=== PATIENT | female | born 1970 | race Caucasian/White ===

== ENCOUNTER 2018-03-17 19:30 | Emergency (ER) | payer OTHER ==
--- NOTE | 2018-03-17 19:32 | PDOC ---
History of Present Illness - General History Source: Patient Exam Limitations: No Limitations - General Chief Complaint: Chest Pain Stated Complaint: CHEST PRESSURE Time Seen by Provider: 03/17/18 19:31 - History of Present Illness Initial Comments: Patient is a 47 year old female with a PMHx of acid reflux, who presents with chest pressure. Patient is a nurse at [employer]. She states that she earlier today at work she began feeling pressure in her chest and abdomen. She took her blood pressure thinking it was low but measured it and it was actually high. She also states that she felt lethargic and had trouble keeping her eyes open. Patient states that she hasnt seen her primary care doctor in a couple of years but last time she was there her blood pressure was normal. She denies any fever, chills, sore throat, cough, congestion, or recent illness. ROS General: No fevers or chills, no weakness, no weight loss HEENT: No change in vision. No sore throat, No ear pain Cardiovascular: +chest pressure. No chest pain or shortness of breath Respiratory:No cough, or wheezing. Gastrointestinal: No nausea, vomiting, diarrhea or constipation, No rectal bleeding Genitourinary: No dysuria, hematuria, or frequency Musculoskeletal: No joint or muscle pain or swelling Neurologic: No headache, vertigo, dizziness or loss of consciousness Psychiatric: No depression Skin: No rashes or easy bruising Endocrine: +lethargy. No increased thirst or abnormal weight change Allergic: No skin or latex allergy All other systems reviewed and normal PE General: Well-nourished well-developed individual, no acute distress HEENT: Throat: Normal, tonsils normal, no erythema or exudate Neck: Supple, no meningeal signs, no lymphadenopathy Eyes:Pupils equal reactive and round, extraocular motion intact Chest: Nontender to palpation Cardiac: S1-S2 normal, regular rate and rhythm, no murmurs rubs or gallops Respiratory: Lungs clear to auscultation bilateral Abdomen: Soft, nondistended, normal bowel sounds, mild tenderness to palpation of epigastric region. Extremities: Warm, dry, no cyanosis, clubbing, or edema Skin: No rashes Neuro: Alert and oriented x3, nonfocal exam, grossly intact, normal gait Psych: Normal mood and affect 03/17/18 20:01 (Estefania Steele) 03/17/18 21:24 A portion of this note was documented by scribe services under my direction. I have reviewed the details of the note, within reason, and agree with the documentation. The case summary and management plan written by me. Assessment plan: This is a 47-year-old female who has a history of hypertension not on any medications. Patient is uncertain at what point she developed hypertension as it has been a couple years and she saw her primary care doctor. Patient had a cardiogram that was normal and a workup that was negative for any acute process including a negative troponin. Patient had a TSH done that was not available at the time of her discharge however she well follow-up with her doctor and make sure she gets the result of the TSH. Patient discharged home with her . (Peewee Joe I) Past History - Past Medical History Allergies/Adverse Reactions: Allergies Allergy/AdvReac Type Severity Reaction Status Date / Time No Known Allergies Allergy Unverified 03/17/18 19:31 Home Medications: Ambulatory Orders NK [No Known Home Medication] 03/17/18 Review of Systems - Review of Systems Comments:: See HPI (Estefania Steele) *Physical Exam - Vital Signs Last Vital Signs Temp Pulse Resp BP Pulse Ox 98 F 82 14 166/90 100 03/17/18 19:32 03/17/18 19:32 03/17/18 19:32 03/17/18 19:32 03/17/18 19:32 - Physical Exam Comments: see HPI (Estefania Steele) Heart Score/ECG Review - ECG Impressions Comment:: EKG Interpretation done on 17-Mar-2018 19:45:01 Vent rate: 83 bpm Normal sinus rhythm Normal ECG (Estefania Steele) ED Treatment Course - LABORATORY CBC & Chemistry Diagram: 03/17/18 19:57 03/17/18 19:57 - ADDITIONAL ORDERS Additional order review: Laboratory Results 03/17/18 03/17/18 03/17/18 20:00 20:00 19:57 Sodium Potassium Chloride Carbon Dioxide Anion Gap BUN Creatinine Creat Clearance w eGFR Random Glucose Calcium Total Bilirubin AST ALT Alkaline Phosphatase Creatine Kinase 61 Troponin I < 0.03 Total Protein Albumin Urine Color Yellow Urine Appearance Clear Urine pH 5.5 Ur Specific [place] 1.015 Urine Protein Negative Urine Glucose (UA) Negative Urine Ketones Negative Urine Blood Negative Urine Nitrite Negative Urine Bilirubin Negative Urine Urobilinogen 0.2 Ur Leukocyte Esterase Negative 03/17/18 19:57 Sodium 135 L Potassium 4.1 Chloride 105 Carbon Dioxide 23 Anion Gap 7 L BUN 16 Creatinine 0.9 Creat Clearance w eGFR > 60 Random Glucose 101 Calcium 8.9 Total Bilirubin 0.7 AST 14 ALT 13 Alkaline Phosphatase 58 Creatine Kinase Troponin I Total Protein 6.6 Albumin 3.8 Urine Color Urine Appearance Urine pH Ur Specific [place] Urine Protein Urine Glucose (UA) Urine Ketones Urine Blood Urine Nitrite Urine Bilirubin Urine Urobilinogen Ur Leukocyte Esterase 03/17/18 19:57 RBC 5.07 MCV 75.5 L MCHC 33.2 RDW 15.5 MPV 9.6 Neutrophils % 73.4 Lymphocytes % 19.7 Monocytes % 5.0 Eosinophils % 1.5 Basophils % 0.4 - Medications Given in the ED: ED Medications Discontinued Medications Generic Name Dose Route Start Last Admin Trade Name Freq PRN Reason Stop Dose Admin Al Hydroxide/Mg Hydroxide 30 ml 03/17/18 19:52 03/17/18 20:15 Mylanta Oral Suspension - PO 03/17/18 19:53 30 ml ONCE ONE Administration *DC/Admit/Observation/Transfer - Discharge Dispostion Decision to Admit order: No Diagnosis at time of Disposition: Pressure in chest - Discharge Dispostion Disposition: HOME Condition at time of disposition: Good - Patient Instructions Additional Instructions: You had a workup in the emergency department because you're having some chest pressure. Your workup was negative for any cardiac causes including you had a normal cardiogram and your cardiac enzymes were negative. However your blood pressure was mildly elevated and is important that you follow -up with your doctor and may need to be started on some blood pressure sure medication I gave you copies of your blood work and your cardiogram take them when you go see her doctor Your lipase and TSH were not available at the time I gave you copies so you can call tomorrow for the results of them. The phone number is [phone] Return to the emergency department immediately with ANY new, persistent or worsening symptoms. Continue any medications as previously prescribed by your physician. You should follow up with your primary doctor as soon as possible regarding today's emergency department visit. . Please make sure your doctor reviews the results of your emergency evaluation. Thank you for coming to the Emergency Department today for your care. It was a pleasure to see you today. Please note that your evaluation is INCOMPLETE until you follow-up with your doctor. . - Attestations Scribe Attestion: 03/17/18 19:57 Documentation prepared by Estefania Steele, acting as medical billing service for Peewee Joe MD. (Estefania Steele)
[2018-03-17 19:39] VITALS: PULSE 82; TEMP 98; BMI 29.6
[2018-03-17] MEDS ORDERED: MAG HYDROX/AL HYDROX/SIMETH 30 ML UNIT-DOSE CUP PO ONE (19:52)
[2018-03-17 20:20] LABS: BASO % 0.4 % (0-2.0); EOS % 1.5 % (0-4.5); HEMATOCRIT 38.3 % (32.4-45.2); HEMOGLOBIN 12.7 GM/dl (10.7-15.3); LYMPH % 19.7 % (8-40); MCH 25.1 pg (25.7-33.7); MCHC 33.2 g/dl (32.0-36.0); MEAN CELL VOLUME 75.5 fl (80-96); MEAN PLT VOLUME 9.6 fl (7.5-11.1); NEUT % 73.4 % (42.8-82.8); PLATELET COUNT 218 K/MM3 (134-434); RBC 5.07 M/mm3 (3.60-5.2); RDW 15.5 % (11.6-15.6); WHITE BLOOD COUNT 9.3 K/mm3 (4.0-10.8)
[2018-03-17 20:29] LABS: ALBUMIN 3.8 g/dl (3.5-5.0); ALK PHOS 58 U/L (32-92); ANION GAP 7 MMOL/L (8-16); BILIRUBIN,TOTAL 0.7 mg/dl (0.2-1.0); BLOOD UREA NITROGEN 16 mg/dl (7-18); CALCIUM 8.9 mg/dl (8.4-10.2); CHLORIDE 105 mmol/L (98-107); CO2 23 mmol/L (22-28); CREATININE 0.9 mg/dl (0.6-1.3); GLUCOSE,RANDOM 101 mg/dl (74-106); POTASSIUM 4.1 mmol/L (3.5-5.1); SGOT/AST 14 U/L (10-42); SGPT/ALT 13 U/L (10-40); SODIUM 135 mmol/L (136-145); TOT PROT 6.6 g/dl (6.4-8.3)
[2018-03-17] MEDS ORDERED: MAG HYDROX/AL HYDROX/SIMETH 30 ML UNIT-DOSE CUP ONE (20:39)
[2018-03-17 20:42] LABS: PH,URINE 5.5 (4.5-8); URINE APPEARANCE Clear; URINE BILIRUBIN Negative (NEGATIVE); URINE COLOR Yellow; URINE GLUCOSE (UA) Negative (NEGATIVE); URINE KETONE Negative (NEGATIVE); URINE LEUK ESTERASE Negative (NEGATIVE); URINE NITRITE Negative (NEGATIVE); URINE PROTEIN Negative (NEGATIVE); URINE UROBILINOGEN 0.2 (0.2-1.0)
[2018-03-17 21:29] VITALS: BP 146/99
--- NOTE | 2018-03-18 09:59 | EKG ---
Test Reason : Blood Pressure : / mmHG Vent. Rate : 083 BPM Atrial Rate : 083 BPM P-R Int : 158 ms QRS Dur : 084 ms QT Int : 380 ms P-R-T Axes : 052 024 029 degrees QTc Int : 446 ms NORMAL SINUS RHYTHM NORMAL ECG NO PREVIOUS ECGS AVAILABLE Confirmed by KENY KING, MANUELITO ([id number]) on 03/18/2018 9:58:52 AM Referred By: MD CEVALLOS Confirmed By:MANUELITO BUSTILLO MD
== END 2018-03-17 21:29 | disposition home or self-care (01) ==
LOC: FER 19:30
DX: R07.89 Other chest pain (principal); K21.9 Gastro-esophageal reflux disease without esophagitis
CPT/HCPCS: 36415; 80053; 81003; 82550; 83690; 84443; 84484; 85025; 93005; 99283-25

== ENCOUNTER 2021-05-30 10:04 | Emergency (ER) | payer OTHER ==
[2021-05-30 10:58] VITALS: TEMP 97.9; BMI 27.3
[2021-05-30] MEDS ORDERED: CASIRIVIMAB/IMDEVIMAB 10 ML in SODIUM CHLORIDE 100 ML IVPB ONE (11:10)
[2021-05-30 12:08] LABS: HEMATOCRIT 41.4 % (32.4-45.2); MCH 26.3 pg (25.7-33.7); MCHC 33.9 g/dl (32.0-36.0); MEAN CELL VOLUME 77.5 fl (80-96); PLATELET COUNT 157 10^3/uL (134-434); RBC 5.34 M/mm3 (3.60-5.2); RDW 15.1 % (11.6-15.6); WHITE BLOOD COUNT 3.5 K/mm3 (4.0-10.0)
[2021-05-30 12:30] LABS: CALCIUM 8.6 mg/dL (8.5-10.1)
[2021-05-30 12:34] LABS: CREATININE 0.8 mg/dL (0.55-1.3)
[2021-05-30 13:41] VITALS: BP 133/82; PULSE 75
== END 2021-05-30 13:42 | disposition home or self-care (01) ==
LOC: JCOVINFU 10:04
DX: U07.1 COVID-19 (principal)
CPT/HCPCS: 36415; 80048; 85027; 99284-25; Q0240